=== PATIENT | female | born 1985 | race Caucasian/White ===

== ENCOUNTER → 2016-07-29 | Outpatient (REF) | payer BC | LOC: M LAB REF 16:41 | PROVIDERS: ATTEND Obstetrics & Gynecology | DX: R30.0 Dysuria (principal); N76.0 Acute vaginitis ==

== ENCOUNTER 2017-10-28 08:06 | Day surgery (SDC) | payer BC ==
[2017-10-28 08:38] LABS: HEMATOCRIT 40.4 % (36.0-47.0); HEMOGLOBIN 13.5 g/dl (12.0-15.5); MEAN CORPUSCULAR HGB CONC 33.4 g/dl (32.0-36.5); MEAN CORPUSCULAR VOLUME 92.9 fl (80.0-96.0); PLATELET COUNT, AUTOMATED 240 10^3/uL (150-450); RED BLOOD COUNT 4.35 10^6/uL (4.00-5.40); RED CELL DISTRIBUTION WIDTH 12.8 % (11.5-14.5); WHITE BLOOD COUNT 12.6 10^3/uL (4.0-10.0)
[2017-10-28] MEDS: LR 1,000 ML IV (08:44)
[2017-10-28 08:57] LABS: CONTROL LINE HCG INT CTR LINE PRESENT; HCG, SERUM QUALITATIVE NEGATIVE (NEGATIVE)
[2017-10-28] MEDS ORDERED: dexameTHASONE 4 MG/ML 1ML VIAL (J1100) As Ordered (08:59)
[2017-10-28] MEDS ORDERED: PROPOFOL 200 MG/20 ML VIAL As Ordered (08:59)
[2017-10-28] MEDS ORDERED: LIDOCAINE 2% INJ 100 MG/5 ML SDV (FOR ANES.) As Ordered (08:59)
[2017-10-28] MEDS ORDERED: ONDANSETRON 4MG/2ML VIAL (J2405) As Ordered (08:59)
[2017-10-28] MEDS ORDERED: fentaNYL 100 MCG/2 ML INJECTION (J3010) As Ordered (09:00)
[2017-10-28] MEDS ORDERED: MIDAZOLAM INJ 2 MG/2 ML VIAL (J2250) As Ordered (09:00)
[2017-10-28] MEDS: LIDOCAINE W/EPINEPHRINE 1% 20ML VIAL As Ordered (10:27)
[2017-10-28] MEDS: ACETAMINOPHEN 650 MG SUPP As Ordered (10:27)
[2017-10-28] MEDS: IODINE STRONG SOLN 15 ML BTL As Ordered (10:28)
[2017-10-28] MEDS ORDERED: PERCOCET 5MG/325MG TAB PO (11:15)
[2017-10-28] MEDS ORDERED: IBUPROFEN 800 MG TAB PO (12:00)
== END 2017-10-28 12:20 | disposition home or self-care (01) ==
LOC: M SDC 08:06
DX: N87.0 Mild cervical dysplasia (principal); F17.210 Nicotine dependence, cigarettes, uncomplicated; Z88.0 Allergy status to penicillin; Z88.2 Allergy status to sulfonamides
CPT/HCPCS: 57522

== ENCOUNTER → 2018-10-02 | Outpatient (REF) | payer BC ==
[~2018-10-02] MED LIST: IBUP80TA PO; MULT1TAB42 PO; PROBCAP4 PO; birth control pill PO
[2018-10-02 13:45] LABS: BASO % 0.4 % (0.0-1.0); EOS # 0.1 10^3/uL (0.0-0.50); EOS % 1.1 % (0.0-3.0); HEMATOCRIT 40.3 % (36.0-47.0); HEMOGLOBIN 13.3 g/dl (12.0-15.5); LYMPH # 2.1 10^3/uL (1.5-4.5); LYMPH % 25.3 % (24.0-44.0); MEAN CORPUSCULAR HEMOGLOBIN 30.3 pg (27.0-33.0); MEAN CORPUSCULAR VOLUME 91.8 fl (80.0-96.0); MONO # 0.8 10^3/uL (0.0-0.8); MONO % 9.6 % (0.0-5.0); NEUTROPHILS # 5.3 10^3/uL (1.8-7.7); NEUTROPHILS % 63.4 % (36.0-66.0); PLATELET COUNT, AUTOMATED 223 10^3/uL (150-450); RED BLOOD COUNT 4.39 10^6/uL (4.00-5.40); WHITE BLOOD COUNT 8.3 10^3/uL (4.0-10.0)
[2018-10-02 13:56] LABS: ALBUMIN 3.9 GM/DL (3.2-5.2); ALT/SGPT 27 U/L (12-78); BILIRUBIN,TOTAL 0.4 MG/DL (0.2-1.0); BLOOD UREA NITROGEN 17 MG/DL (7-18); CALCIUM LEVEL 8.5 MG/DL (8.5-10.1); CARBON DIOXIDE LEVEL 26 MEQ/L (21-32); CHLORIDE LEVEL 104 MEQ/L (98-107); CHOLESTEROL LEVEL 175 MG/DL (<200); CHOLESTEROL RISK RATIO 3.301 (<5); CREATININE FOR GFR 0.72 MG/DL (0.55-1.30); GLOMERULAR FILTRATION RATE > 60.0 (>60); GLUCOSE, FASTING 90 MG/DL (70-100); HDL CHOLESTEROL 53 MG/DL (>40); LDL CHOLESTEROL 109 MG/DL (<100); NON-HDL-C 122 MG/DL; POTASSIUM SERUM 4.3 MEQ/L (3.5-5.1); RHEUMATOID FACTOR QUANT < 10.0 IU/ML (<15.0); SODIUM LEVEL 139 MEQ/L (136-145); THYROID STIMULATING HORMONE 0.674 uIU/ML (0.358-3.740); TOTAL PROTEIN 6.7 GM/DL (6.4-8.2); TRIGLYCERIDES LEVEL 66 MG/DL (<150)
[2018-10-02 14:13] LABS: ERYTHROCYTE SEDIMENTATION RATE 6 mm/hr (0-20)
[2018-10-04 00:06] LABS: ANA (HEP2) Negative (.); Lyme Disease IgG/IgM Antibodie <0.91 ISR (0.00-0.90); Lyme Disease IgM Ab Quantitati <0.80 index (0.00-0.79)
== END ==
LOC: M SFHCADAM 09:56
PROVIDERS: ATTEND Physician Assistant Medical
DX: M25.531 Pain in right wrist (principal); E78.5 Hyperlipidemia, unspecified; M25.532 Pain in left wrist; M25.551 Pain in right hip; M25.552 Pain in left hip

== ENCOUNTER → 2018-10-10 | Outpatient (REF) | payer BC | LOC: M LAB REF 12:50 | PROVIDERS: ATTEND Physician Assistant Medical | DX: N39.0 Urinary tract infection, site not specified (principal) ==

== ENCOUNTER → 2019-08-02 | Outpatient (REF) | payer BC | LOC: M LAB REF 16:19 | PROVIDERS: ATTEND Obstetrics & Gynecology | DX: N39.0 Urinary tract infection, site not specified (principal) ==

== ENCOUNTER → 2019-08-28 | Outpatient (CLI) | payer BC | LOC: M LABSMTC 13:47 → EEVIPCON 13:47 | PROVIDERS: ATTEND Family Medicine | DX: Z11.59 Encounter for screening for other viral diseases (principal); Z20.828 Contact with and (suspected) exposure to other viral communicable diseases | CPT/HCPCS: C9803; U0003 ==

== ENCOUNTER → 2020-10-28 | Outpatient (CLI) | payer BC ==
--- NOTE | 2020-10-28 12:28 | REP ---
INDICATION: ACUTE LEFT SIDED LOW BACK PAIN W/SCIATICA, PAIN IN LEFT HIP. COMPARISON: None TECHNIQUE: AP frog-lateral views FINDINGS: The joint space is symmetric and well maintained. There is no acute fracture, dislocation, or subluxation. There is no evidence of buttressing. IMPRESSION: Within normal limits <Electronically signed by Bienvenido Kowalski > 10/28/20 0807
--- NOTE | 2020-10-28 12:31 | REP ---
INDICATION: ACUTE LEFT SIDED LOW BACK PAIN W/SCIATICA, PAIN IN LEFT HIP. COMPARISON: None. TECHNIQUE: Five views. FINDINGS: Five views of the lumbar spine show preserved vertebral body heights normal alignment. Pedicles and posterior elements are intact. There is no evidence of spondylolysis or spondylolisthesis. There is facet joint narrowing and sclerosis bilaterally at L5-S1, right a little more so than left. Psoas margins are symmetric. Sacrum and SI joints are unremarkable. There is minimal disc space narrowing at L3-4. Other disc spaces are preserved in height. IMPRESSION: Mild degenerative spondylosis changes at L5-3 4 and L5-S1. No acute abnormality. <Electronically signed by Alberto Rodriguez > 10/28/20 0190
== END ==
LOC: M ADAMS 11:43
PROVIDERS: ATTEND Physician Assistant Medical
DX: M47.816 Spondylosis without myelopathy or radiculopathy, lumbar region (principal); M47.817 Spondylosis without myelopathy or radiculopathy, lumbosacral region; M54.42 Lumbago with sciatica, left side; M25.552 Pain in left hip

== ENCOUNTER → 2020-11-06 | Outpatient (RCR) | payer BC | LOC: M PT 12:46 | PROVIDERS: ATTEND Physician Assistant Medical | DX: M54.42 Lumbago with sciatica, left side (principal); M25.552 Pain in left hip ==

== ENCOUNTER 2020-12-05 11:13 | Outpatient (RCR) | payer BC | END 2020-12-07 | LOC: M PT 11:13 | PROVIDERS: ATTEND Physician Assistant Medical | DX: M54.42 Lumbago with sciatica, left side (principal); M25.552 Pain in left hip ==

== ENCOUNTER 2020-12-23 15:00 | Outpatient (RCR) | payer BC | END 2021-01-06 | LOC: M PT 15:00 | PROVIDERS: ATTEND Physician Assistant Medical | DX: M54.42 Lumbago with sciatica, left side (principal); M25.552 Pain in left hip ==

== ENCOUNTER → 2021-06-04 | Outpatient (CLI) | payer BC | LOC: M SOG 08:02 | PROVIDERS: ATTEND Physician Assistant | DX: M25.531 Pain in right wrist (principal); M25.532 Pain in left wrist ==